=== PATIENT | male | born 2000 | race Caucasian/White ===

== ENCOUNTER 2020-09-08 23:52 | Emergency (ER) | payer OTHER ==
[~2020-09-08] VITALS: Ht 185.4 cm; Wt 72.7 kg
[2020-09-09] MEDS ORDERED: PROP10TA73 PO (00:04)
[2020-09-09] MEDS ORDERED: DEXT10TA4 PO (00:04)
[2020-09-09 02:30] VITALS: BP 106/98
== END 2020-09-09 03:14 | disposition home or self-care (01) ==
LOC: EMS 23:53
DX: S00.01XA Abrasion of scalp, initial encounter (principal); F17.210 Nicotine dependence, cigarettes, uncomplicated; W19.XXXA Unspecified fall, initial encounter; Y93.39 Activity, other involving climbing, rappelling and jumping off; Y92.89 Other specified places as the place of occurrence of the external cause; Y99.8 Other external cause status
CPT/HCPCS: 36415; 70450; 72125; 99285; G0480